=== PATIENT | male | born 1960 | race African-American/Black ===

== ENCOUNTER 2019-10-15 21:54 | Emergency (ER) | payer OTHER ==
[~2019-10-15] VITALS: Ht 172.7 cm; Wt 95.5 kg
[~2019-10-15 21:54] MED LIST: AMLO5TAB9 PO; LISI-662 PO
[2019-10-16] MEDS ORDERED: AmLODIPine BESYLATE 5 MG TABLET PO ONE (01:00)
[2019-10-16] MEDS ORDERED: OMEP20 PO (01:11)
[2019-10-16] MEDS ORDERED: CHLO25TA3 PO (01:11)
[2019-10-16] MEDS ORDERED: DIPH25 PO (01:11)
[2019-10-16] MEDS ORDERED: ASPI-1522 PO (01:11)
[2019-10-16] MEDS ORDERED: ZOLP10TA7 PO (01:11)
[2019-10-16 02:50] VITALS: BP 148/96
== END 2019-10-16 02:52 | disposition home or self-care (01) ==
LOC: EMS 21:56
DX: S09.90XA Unspecified injury of head, initial encounter (principal); I10 Essential (primary) hypertension; K21.9 Gastro-esophageal reflux disease without esophagitis; Z79.899 Other long term (current) drug therapy; W22.8XXA Striking against or struck by other objects, initial encounter; Y93.89 Activity, other specified; Y92.89 Other specified places as the place of occurrence of the external cause; Y99.8 Other external cause status
CPT/HCPCS: 70450